=== PATIENT | male | born 1945 | race Caucasian/White ===

== ENCOUNTER → 2016-07-30 | Outpatient (CLI) | payer MEDICARE ==
[~2016-07-30] MED LIST: DOCU10CA PO; LEVA500T PO; LOSA100T PO; METF500T PO; NEXI40CA PO; PERC5TAB6 PO; PROP1TAB29 PO; SERT-141 PO; SIMV40TA2 PO
--- NOTE | 2016-08-04 07:28 | SLEEPCENT ---
DATE OF STUDY: 07/30/2016 ORDERING PROVIDER: Yolanda Badillo NP Nocturnal polysomnography was performed for evaluation of this patient with excessive somnolence and comorbidities of cardiac arhythmia. 8 hours and 10 minutes of data were reviewed. There were 302 minutes of sleep identified. Sleep latency was prolonged at 54 minutes. Rapid eye movement (REM) latency was prolonged at 150 minutes. Sleep architecture initially showed severe fragmentation. Improvement was seen after interventions were made. Overall sleep efficiency was 62.8%. The patient's electrocardiogram (EKG) showed a sinus rhythm with 1st degree AV block. Average heart rate 54 beats per minute. The rhythm may have been paced. Electroencephalogram (EEG) showed normal waveforms for awake and sleep. There were 66 respiratory events identified of 10 seconds in duration or greater for an apnea-hypopnea index of 13.1. The events were associated with significant oxygen desaturation; and having clearly established the presence of obstructive sleep apnea syndrome, testing was stopped shortly after 10 p.m. for the application of pressure therapy. The patient was fit with a [employer]Med Quattro full face mask of medium size. 5 cm of water pressure were applied to the circuit, and the lights were extinguished. Throughout the remaining portion of the study, continuous positive airway pressure (CPAP) titration was performed to an optimal pressure of 11. This resulted in resolution of respiratory obstructive events. However, oxygen desaturations prompted the addition of supplemental oxygen. Best sleep was seen on CPAP at 11 with 2 liters of oxygen bled through the system. IMPRESSION: Obstructive sleep apnea syndrome (G47.33). RECOMMENDATION: Nightly use of pressure therapy 11 cm of water with 2 liters of oxygen bled through the system.
== END | disposition home or self-care (01) ==
LOC: M SLEEP 19:37
PROVIDERS: ATTEND Nurse Practitioner Adult Health
DX: G47.33 Obstructive sleep apnea (adult) (pediatric) (principal)

== ENCOUNTER → 2017-01-26 | Outpatient (REF) | payer MEDICARE ==
[~2017-01-26] MED LIST changes: +LEVA1TAB2 PO; -LEVA500T PO; -LOSA100T PO; +LOSA100T8 PO; -METF500T PO; +METF500T13 PO; +PERC5TAB12 PO; -PERC5TAB6 PO; -SERT-141 PO; +SERT50TA PO
[2017-01-26 18:48] LABS: BASO % 1.1 % (0.0-1.0); EOS % 3.6 % (0.0-3.0); LARGE UNSTAINED CELL % 1.8 % (0.0-4.0); LYMPH # 1.5 K/mm3 (1.5-4.5); LYMPH % 28.1 % (24.0-44.0); MEAN CORPUSCULAR HEMOGLOBIN 31.6 pg (27.0-33.0); MEAN CORPUSCULAR HGB CONC 34.3 g/dl (32.0-36.5); MEAN CORPUSCULAR VOLUME 92.2 fl (80.0-96.0); MONO % 7.7 % (0.0-5.0); NEUTROPHILS % 57.7 % (36.0-66.0); PLATELET COUNT, AUTOMATED 247 k/mm3 (150-450); RED CELL DISTRIBUTION WIDTH 12.7 % (11.5-14.5); WHITE BLOOD COUNT 5.1 K/mm3 (4.0-10.0)
[2017-01-26 18:49] LABS: EOS # 0.2 K/mm3 (0.0-0.50); LARGE UNSTAINED CELL # 0.1 K/mm3 (0.0-0.4); MONO # 0.4 K/mm3 (0.0-0.8)
[2017-01-26 19:17] LABS: ERYTHROCYTE SEDIMENTATION RATE 6 mm/hr (0-20)
[2017-01-26 19:48] LABS: VITAMIN B12 LEVEL 408 PG/ML (247-911)
[2017-01-26 19:49] LABS: FOLATE 16.9 NG/ML (>5.4)
[2017-01-26 19:54] LABS: ALBUMIN 3.7 GM/DL (3.2-5.2); ALBUMIN/GLOBULIN RATIO 1.12 (1.00-1.93); ALKALINE PHOSPHATASE 75 U/L (45-117); ALT/SGPT 44 U/L (12-78); ANION GAP 8 MEQ/L (8-16); AST/SGOT 25 U/L (15-37); BILIRUBIN,TOTAL 0.3 MG/DL (0.2-1.0); BLOOD UREA NITROGEN 11 MG/DL (7-18); CALCIUM LEVEL 8.9 MG/DL (8.8-10.2); CARBON DIOXIDE LEVEL 29 MEQ/L (21-32); CHLORIDE LEVEL 105 MEQ/L (98-107); CREATININE FOR GFR 1.03 MG/DL (0.70-1.30); FERRITIN 91 NG/ML (26-388); GLOMERULAR FILTRATION RATE > 60.0 (>42); GLUCOSE, FASTING 113 MG/DL (83-110); SODIUM LEVEL 142 MEQ/L (136-145); T UPTAKE 34 % (33-40); THYROXINE (T4) 6.6 UG/DL (4.5-12.0)
[2017-01-30 14:08] LABS: SJOGREN'S ANTI SS-A <0.2 AI (0.0-0.9); SJOGREN'S ANTI SS-B <0.2 AI (0.0-0.9); VITAMIN E LEVEL 11.3 mg/L (5.3-17.5)
== END ==
LOC: M LAB REF 15:23
PROVIDERS: ATTEND Psychiatry & Neurology Neurology
DX: R25.1 Tremor, unspecified (principal); R20.0 Anesthesia of skin; Z13.88 Encounter for screening for disorder due to exposure to contaminants